=== PATIENT | male | born 1970 | race Caucasian/White ===

== ENCOUNTER → 2018-07-09 | Emergency (ER) | payer OTHER ==
[~2018-07-09] MED LIST: LEVOTHROID25 MCG; SYNTHROID50 MCG
== END | disposition left against medical advice (07) ==
LOC: ER 19:03
DX: Z53.20 Procedure and treatment not carried out because of patient's decision for unspecified reasons (principal)

== ENCOUNTER 2020-02-24 08:18 | Outpatient (CLI) | payer OTHER | END 2020-02-24 08:20 | disposition home or self-care (01) | LOC: SONOGRAMA 08:18 → MAMO-SONO 13:45 | PROVIDERS: ATTEND Internal Medicine Endocrinology, Diabetes & Metabolism | DX: E04.1 Nontoxic single thyroid nodule (principal) ==

== ENCOUNTER 2023-01-15 11:35 | Emergency (ER) | payer OTHER ==
[~2023-01-15] VITALS: Ht 165.1 cm; Wt 86.6 kg
== END 2023-01-15 13:31 | disposition home or self-care (01) ==
LOC: ER 11:35
DX: L02.415 Cutaneous abscess of right lower limb (principal); E03.9 Hypothyroidism, unspecified; I10 Essential (primary) hypertension